=== PATIENT | female | born 1990 | race Two or more races ===

== ENCOUNTER 2021-11-08 06:41 | Outpatient (CLI) | payer OTHER ==
--- NOTE | 2021-11-08 11:24 | Ultrasound Report ---
PROCEDURE: Pelvic w/Transvaginal INDICATIONS: HEAVY MENSTRUAL BLEEDING TECHNIQUE: Real-time scanning was performed of the pelvic organs, with image documentation. Additional endovagi nal scanning was necessary due to incomplete visualization of the adnexal and endometrial structures by transabdominal scanning. COMPARISON: None. FINDINGS: No pathologic free abdominal or pelvic fluid. Uterus: Uterus is at the upper limits of normal in size at 9.7 x 4.7 x 6.7 cm, volume 1 60 cc The e ndometrium measures 8.2 mm in combined thickness. There is a somewhat lobulated focus within the end ometrium measuring approximately 9 x 5 x 6 mm. Ovaries: Right ovary measures 3.6 x 1.6 x 1.8 cm, volume 5.4 cc. Left ovary measures 3.7 x 1.6 x 2.3 cm, volume 7 cc. There is a focal area of decreased echogenicity within the left ovary with greatest dimension measuring 1.6 cm likely related to prominent follicle. IMPRESSION: 1. Questionable polyp versus menstrual blood within the endometrium as described above. It is overall nonspecific. Recommend follow-up ultrasound imaging in 6 weeks. Reviewed by: Brittani Wilde MD on 11/08/2021 11:22 AM PST Approved by: Brittani Wilde MD on 11/08/2021 11:22 AM PST Station ID: [id number]
== END 2021-11-08 06:42 | disposition home or self-care (01) ==
LOC: DI 06:41
PROVIDERS: ATTEND Physician Assistant
DX: N93.9 Abnormal uterine and vaginal bleeding, unspecified (principal); N92.0 Excessive and frequent menstruation with regular cycle

== ENCOUNTER 2021-12-19 11:11 | Outpatient (CLI) | payer OTHER ==
--- NOTE | 2021-12-19 13:29 | Ultrasound Report ---
PROCEDURE: Pelvic w/Transvaginal INDICATIONS: HEAVY MENSTRAL BLEEDING, QUESTIONABLE POLYP F/U TECHNIQUE: Real-time scanning was performed of the pelvic organs, with image documentation. Additional endovagi nal scanning was necessary due to incomplete visualization of the adnexal and endometrial structures by transabdominal scanning. COMPARISON: 11/08/2021 FINDINGS: No pathologic free abdominal or pelvic fluid. Uterus: Uterus is normal in size at 8.5 x 4.3 x 5.8 cm. The endometrium measures 11 mm in combined thickness. Homogeneous uterine echotexture. Previously noted possible hemorrhagic product versus end ometrial polyp is not appreciated on today's examination. Otherwise, unremarkable appearance of the u terus. Nabothian cysts are present. Ovaries: Right ovary measures 1.9 x 2.2 x 2.0 cm. Right ovarian volume measures 4.4 mL. Left ovary m easures 3.0 x 1.1 x 1.1 cm with ovarian volume of 1.8 mL. Small partially exophytic ovarian cysts vis ualized. One measures approximately 1.5 cm and the other measures approximately 1.3 cm. IMPRESSION: 1. No sonographic evidence for endometrial polyp identified on today's study. 2. Otherwise, unremarkable sonographic evaluation of the pelvis. Reviewed by: Doc Colon MD on 12/19/2021 12:28 PM [facility] Approved by: Doc Colon MD on 12/19/2021 12:28 PM [facility] Station ID: [id number]
== END 2021-12-19 11:12 | disposition home or self-care (01) ==
LOC: DI 11:11
PROVIDERS: ATTEND Physician Assistant
DX: N93.9 Abnormal uterine and vaginal bleeding, unspecified (principal); N92.0 Excessive and frequent menstruation with regular cycle

== ENCOUNTER 2023-01-23 08:00 | Outpatient (CLI) | payer OTHER ==
[2023-01-23 21:30] LABS: BACTERIAL VAGINOSIS DNA NEGATIVE (NEGATIVE); CANDIDA GLABRATA DNA NEGATIVE (NEGATIVE); CANDIDA GROUP DNA POSITIVE (NEGATIVE); CANDIDA KRUSEI DNA NEGATIVE (NEGATIVE); CHLAMYDIA TRACHOMATIS DNA NEGATIVE (NEGATIVE); TRICHOMONAS VAGINALIS DNA NEGATIVE (NEGATIVE)
[2023-01-23 21:31] LABS: NEISSERIA GONORRHOEAE DNA NEGATIVE (NEGATIVE)
== END 2023-01-23 23:59 | disposition home or self-care (01) ==
LOC: LAB.WC 08:00
PROVIDERS: ATTEND Nurse Practitioner
DX: N76.0 Acute vaginitis (principal)
CPT/HCPCS: 81514; 87491; 87591; 87661

== ENCOUNTER 2024-02-15 08:30 | Outpatient (CLI) | payer OTHER ==
--- NOTE | 2024-02-15 10:01 | XRAY Report ---
PROCEDURE: Chest 2V INDICATIONS: ASTHMA TECHNIQUE: 2 views of the chest were acquired. COMPARISON: None. FINDINGS: Surgical changes and devices: None. Lungs and pleura: No pleural effusions or pneumothorax. Lungs are clear. Mediastinum: Mediastinal contours appear normal. Heart size is normal. Bones and chest wall: No suspicious bony lesions. Overlying soft tissues appear unremarkable. IMPRESSION: No acute cardiopulmonary process. Reviewed by: Saulo Castro MD on 02/15/2024 10:00 AM PDT Approved by: Saulo Castro MD on 02/15/2024 10:00 AM PDT Station ID: [id number]
== END 2024-02-15 08:45 | disposition home or self-care (01) ==
LOC: DI.N 08:30
PROVIDERS: ATTEND Family Medicine
DX: J45.909 Unspecified asthma, uncomplicated (principal)